=== PATIENT | female | born 1960 | race Caucasian/White ===

== ENCOUNTER → 2016-11-30 | Outpatient (CLI) | payer BC, MEDICARE ==
[~2016-11-30] MED LIST: ALLEGRA PO; AZOR 10/20 MG T1 TAB PO; BENICAR PO; CRESTOR PO; CRESTOR5 MG PO; CYMBALTA20 MG PO; ESTROGEL93 GM TOP; FERGON240 ( 27 ) PO; HYDROCODON-ACE1 EAC5 PO; IBUPROFEN800 MG PO; LASIX20 MG PO; LIPITOR40 MG PO; LORTAB 7.5-5001 TAB PO; MOBIC PO; MOBIC15 MG PO; NASCOBAL1 EACH; NEURONTIN600 MG PO; NEXIUM PO; NORVASC PO; NORVASC10 MG PO; NORVASC2.5 MG PO; OMEGA 3 500 SO1 EACH PO; PLAVIX PO; SINGULAIR PO; VICODIN ES 7.51 EAC1 PO; WALGREENS; ZOLOFT PO; ZOLOFT100 MG PO
--- NOTE | ~2016-11-30 | US77 ---
[facility] A Service of [facility] & [facility] RADIOLOGY TEXT RESULTS PATIENT: CAM LEGER LOCATION: CGUS : 56 UNIT #: [id number] AGE: [address]: Glynn Hess MD SEX: F ORDER DR: [id number] [facility] [address] [place], [place] [address] [id number] O MR#: [id number] Acc #: [id number] NAME: ACM LEGER : 1960 SEX: F STUDY DATE/TIME: 11/30/2016 12:51 UNIT: CGUS ROOM: STUDY DESCRIPTION: US Kidney Bilateral Complete Attending Physician: Glynn Hess M.D. Referring Physician: Glynn Hess M.D. Ordering Physician: Glynn Hess M.D. Primary Care Physician: Malinda Mccray M.D. MEDICAL IMAGING REPORT This report is preliminary unless electronic signature is present EXAM Renal ultrasound INDICATIONS Chronic kidney disease stage 2. Patient apparently has a new doctor who wants to evaluate the kidneys. TECHNIQUE Escobedo-scale and color Doppler sonographic images were obtained through the kidneys and bladder. FINDINGS The right kidney is normal in appearance. No solid or cystic renal masses are seen and there is no hydronephrosis. The left kidney contains a hypoechoic structure within the midportion, which potentially could reflect a simple cyst, although I do not really see increased through-transmission or truly anechoic appearance on the submitted images. Patient did have a 1.6 x 1.1 cm hypo attenuating structure within this area on prior CT from September 2010. This structure seen on today's exam certainly does not appear any larger, which would suggest that it is benign. No hydronephrosis is seen on the left. Patient's bladder does appear somewhat thick-walled although this may be related to incomplete distension. IMPRESSION 1. Right kidney is normal in appearance. 2. Bladder does appear somewhat thick-walled although this may be related to incomplete distension. Certainly correlation with urinalysis and urine cultures may be helpful particularly if the patient has any urinary symptoms. 3. There is a hypoechoic structure seen within the midportion of the left kidney, it may simply reflect a cyst, but does not demonstrate definite increased through transmission or a true anechoic STS. [facility] A Service of [facility] / [facility] RADIOLOGY TEXT RESULTS PATIENT: CAM LEGER LOCATION: CGUS : 56 UNIT #: [id number] AGE: [address]: Glynn Hess MD SEX: F ORDER DR: appearance on the submitted images. Patient did have a hypo attenuating structure within this area on the prior CT from 2010 and certainly the structure on today's exam does not appear any larger, which would suggest that it is benign. However, I would suggest attention to it on subsequent followup ultrasounds with next followup in 6 months recommended. Dictated by... Alesia Ruggiero M.D. THIS IS AN ELECTRONICALLY VERIFIED REPORT Alesia Ruggiero M.D. at 12/01/2016 4:49 PM AFF/to TD: 11/30/2016 16:55 JOB #: [id number] MEDICAL IMAGING REPORT Page 1 of 1 COPY
== END | disposition home or self-care (01) ==
LOC: CGUS 12:24
DX: N18.2 Chronic kidney disease, stage 2 (mild) (principal)
CPT/HCPCS: 76770

== ENCOUNTER → 2016-12-26 | Outpatient (CLI) | payer BC, MEDICARE ==
[2016-12-26 14:21] LABS: HEMATOCRIT 40.2 % (35.0-45.0); HEMOGLOBIN 13.1 gm/dL (12.0-16.0); MEAN CORPUSCULAR HEMOGLOBIN 26.1 PG (28-34); MEAN CORPUSCULAR HGB CONC 32.6 g/dL (30-36); MEAN PLATELET VOLUME 7.9 FL (6.5-11.5); RED BLOOD COUNT 5.03 X10e (3.90-5.30); RED CELL DISTRIBUTION WIDTH 14.3 % (11.0-15.5); WHITE BLOOD COUNT 7.4 X10e3 (4.0-10.5)
[2016-12-26 14:22] LABS: URINE APPEARANCE CLEAR; URINE BILIRUBIN NEG (NEG); URINE BLOOD NEG (NEG); URINE COLOR YELLOW; URINE GLUCOSE NEG (NEG); URINE KETONE NEG (NEG); URINE LEUKOCYTE ESTERASE TRACE (NEG); URINE NITRATE NEG (NEG); URINE PROTEIN NEG (NEG); URINE SPECIFIC GRAVITY 1.003 (1.003-1.035); URINE UROBILINOGEN 0.2 MG/DL (NEG)
[2016-12-26 14:25] LABS: URINE BACTERIA AUWI NEG (NEGATIVE); URINE SQUAMOUS EPITHELIAL CELL NONE SEEN /[HPF]; UWBCS1 AUWI 0-2 (0-5)
[2016-12-26 14:31] LABS: URINE SOURCE CLEAN CATCH
[2016-12-26 14:36] LABS: CREATININE,RANDOM URINE 46 mg/dL; TOTAL PROTEIN,RANDOM URINE <10 mg/dl (<10)
[2016-12-26 15:02] LABS: ALBUMIN SERUM 4.5 g/dL (3.5-5.0); BILIRUBIN,TOTAL 0.4 mg/dL (0.2-2.0); CALCIUM SERUM 9.2 mg/dL (8.4-10.2); GLOM FILT RATE Estimated 62.1 mL/min (>60); MAGNESIUM 2.1 mg/dL (1.6-3.0); PHOSPHOROUS 4.7 mg/dL (2.5-4.6); POTASSIUM 3.7 mmol/L (3.5-5.1); PROTEIN TOTAL SERUM 7.1 g/dL (6.0-8.3)
[2016-12-29 07:59] LABS: CALCIUM (PTHINTACT) 9.9 mg/dL (8.6-10.4)
== END | disposition home or self-care (01) ==
LOC: CLAB 13:46
PROVIDERS: Internal Medicine Nephrology
DX: N18.3 Chronic kidney disease, stage 3 (moderate) (principal)
CPT/HCPCS: 36415; 80053; 81003; 82310; 82570; 83735; 83970; 84100; 84156; 85027